=== PATIENT | female | born 1950 ===

== ENCOUNTER 2020-12-28 05:56 | Day surgery (SDC) | payer OTHER ==
[~2020-12-28 05:56] MED LIST: AZULFIDINE500 M1 PO; FAMOTI PO; GRALISE600 MG PO; JANTOVEN7.5 MG PO; LIPITOR40 M1 PO; PLAQUENIL PO; SINGULAIR10 MG PO; SYNTHROID50 MCG PO; XELJANZ5 MG PO; ZYRTEC10 M3 PO
[2020-12-28] MEDS ORDERED: MACROBID 100 M100 MG PO (13:28)
[2020-12-28] MEDS ORDERED: ULTRACET PO (13:29)
== END 2020-12-28 18:40 | disposition home or self-care (01) ==
LOC: CIR.AMB 05:56
PROVIDERS: ATTEND Obstetrics & Gynecology Gynecology
DX: N81.6 Rectocele (principal); N81.5 Vaginal enterocele

== ENCOUNTER 2024-08-08 05:21 | Day surgery (SDC) | payer OTHER ==
[2024-07-29 13:03] VITALS: BP 132/81
[~2024-08-08] VITALS: Ht 160 cm; Wt 70.3 kg
[~2024-08-08 05:21] MED LIST changes: +ARICEPT5 MG PO; +MACROBID 100 M100 MG PO; +NAMENDA1 EACH PO; +ULTRACET PO; +WELLBUTRIN SR100 MG PO
[2024-08-08] MEDS ORDERED: CEFTRIAXONE SODIUM 2,000 MG VIAL ONE (06:43)
[2024-08-08] MEDS ORDERED: METRONIDAZOLE/SODIUM CHLORIDE 500 MG/100 ML PIGGYBACK IV ONE (06:43)
[2024-08-08] MEDS ORDERED: LIDOCAINE HCL 1%/EPINEPHRINE 20ML VIAL IJ ONE (09:00)
[2024-08-08] MEDS ORDERED: BUPIVACAINE HCL 30 ML VIAL IJ ONE (09:00)
== END 2024-08-08 12:20 | disposition home or self-care (01) ==
LOC: CIR.AMB 05:21
PROVIDERS: ATTEND Colon & Rectal Surgery
DX: R15.9 Full incontinence of feces (principal); R32 Unspecified urinary incontinence
CPT/HCPCS: 64581; 95971; C1778

== ENCOUNTER 2024-08-29 05:31 | Day surgery (SDC) | payer OTHER ==
[2024-07-29 14:40] VITALS: BP 132/81
[~2024-08-29] VITALS: Ht 160 cm; Wt 70.3 kg
[2024-08-29] MEDS ORDERED: CEFTRIAXONE SODIUM 2,000 MG VIAL ONE (06:11)
[2024-08-29] MEDS ORDERED: METRONIDAZOLE/SODIUM CHLORIDE 500 MG/100 ML PIGGYBACK IV ONE ×2 (06:11→08:00)
[2024-08-29] MEDS ORDERED: CEFTRIAXONE SODIUM 2,000 MG VIAL IV ONE (08:00)
== END 2024-08-29 11:50 | disposition home or self-care (01) ==
LOC: CIR.AMB 05:31
PROVIDERS: ATTEND Colon & Rectal Surgery
DX: R15.9 Full incontinence of feces (principal)
CPT/HCPCS: 64590; 95972; C1767